=== PATIENT | female | born 1990 | race Caucasian/White ===

== ENCOUNTER 2025-01-11 21:44 | Emergency (ER) | payer BC, SELFPAY ==
--- OUTSIDE RECORDS SUMMARY | 2025-01-11 21:46 | XMS_ITS | Clinical Summary ---
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 1 Inhaler 2 08/23/2017 Active levocetirizine (XYZAL) 5 mg tab tablet 11/03/2018 Active melatonin 10 mg cap Take by mouth. 0 03/02/2019 Active drospirenone-ethi nyl estradioL (GIANCARLO) 3-0.02 mg tabletIndications :Menorrhagia with regular cycle Take 1 tablet by mouth once daily. 3 Package 3 05/04/2019 Active Active Problems Problem Noted Date Diagnosed Date Overweight(278.02) 09/22/2011 ENURESIS, NOCTURNAL Environmental allergies Resolved Problems Problem Noted Date Diagnosed Date Resolved Date Tobacco use disorder 05/19/2010 016 Immunizations Immunization Administration Dates Next Due DTP 09/23/1993, 0,04/30/1989,1988, 1988 Hepatitis B (Peds) 11/08/2000,01/22/2000, 000 Human Papilloma Virus Vaccine 11/22/2013, 011,10/18/2008 Influenza, IIV3 (Age >=3 years) 02/16/2007 MMR 09/23/1993,01/28/1990 Oral Polio Vaccine 09/23/1993,01/28/1990, 989,1988 Td (Age >=7 Years) 02/24/2019,11/07/1999 Tdap 10/18/2008 Family History Medical History Relation Name Comments Anesthesia Problem Maternal Grandmother H eart failure with syccinylcholine anesthesia Cancer-breast Mother Relation Name Status Comments Maternal Grandmother Mother Social History Tobacco Use Types Packs/Day Years Used Date Smoking Tobacco: Every Day Cigarettes Smokeless Tobacco: Never Tobacco Cessation:Ready to Q uit: No; Counseling Given: Yes Comments:Packet given 04/27/2016 Alcohol Use Standard Drinks/Week Comments Not Currently 0 (1 standard drink = 0.6 oz pur e alcohol) occasional Humiliation, Afraid, Rape, and Kick questionnair e Answer Date Recorded Fear of Current or Ex-Partner No Emotionally Abused No 02/24/2019 Physically Abused No 02/24/2019 Sexually Abused No 02/24/2019 PHQ-2 Answer Date Recorded PHQ-2 Score 2 02/24/2019 Comments No Sex and Gender Information Value Date Recorded Sex Assigned at Not on file Legal Sex Female 7:08 AM SENIOR DENTIST Gender Identity Not on file Sexual Orientation Not on file Occupation Industry Job Start Date Job End Date Not on file Not on file Not on file Not on file Obstetrics History Para Term AB IAB SAB Ectopic Multiple Livin g Live Births 0 0 0 0 0 0 0 0 0 0 Last Filed Vital Signs Vital Sign Reading Time Taken Comments Blood Pressure 127/88 03/02/2019 1:31 PM SENIOR DENTIST Pulse 80 03/02/2019 1:31 PM SENIOR DENTIST Temperature 36.6 C (97.8 F) 03/02/2019 1:31 PM SENIOR DENTIST Respiratory Rate 18 11/14/2014 2:34 PM CDT Oxygen Saturation 97% 03/02/2019 1:31 PM SENIOR DENTIST Inhaled Oxygen Concentration - - Weight 109.7 kg (241 lb 12.8 oz) 02/24/2019 1:00 PM SENIOR DENTIST Height 168 cm (5' 6.14) 02/24/2019 1:00 PM SENIOR DENTIST Body Mass Index 38.86 02/24/2019 1:00 PM SENIOR DENTIST Plan of Treatment Health Maintenance Due Date Last Done Comments Hepatitis C screening for age 18-79 2006 BMI (ht and wt on same day) for age 18+ 02/25/2020 02/24/2019, 08/23/2017, 04/27/2016, Additional history exists Depression screening for age 12+ 02/28/2020 02/27/2019, 02/24/2019, 08/23/2017, Additional history exists Pap test for age 21-65 02/24/2022 9, 11/22/2013, 05/19/2010 Influenza Vaccine (#1) 2024 02/16/2007 Tetanus booster 02/24/2029 02/24/2019, 08/2008, 11/07/1999 RSV vaccine for adults or (1 - 1-dose 75+ series) 05/22/2063 Hepatitis B series for 19+ Completed 11/08, 01/22/2000, 11/07/1999 HPV series for age 9-45 Completed 11/23/19 14, 05/19/2010, 10/18/2008 HIV for age 15-65 Completed 02/24/2019 Pneumococcal series for age 6-49 Aged Out No longer eligible based on patient's age to complete this topic Procedures Procedure Name Priority Date/Time Associated Diagnosis Comments ANTI HIV 1/2 Routine 02/24/2019 1:50 PM SENIOR DENTIST Screening examination for venereal disease LEAF TIER THIN PREP PAP SCREEN IMAGED Routine 02/24/2019 1:29 PM SENIOR DENTIST Screening for malignant neoplasm of cervix from Last 3 Months or Most Recently Relevant to Health Maintenance Results * ANTI HIV 1/2 (02/24/2019 1:50 PM SENIOR DENTIST) HIV-1/HIV-2 ANTIBODY Non-Reacti ve Non-Reacti ve 02/24/2019 8:11 PM SENIOR DENTIST [facility] Comment:HIV-1 p24 and HIV-1/ HIV-2 Ab not detected. Blood BLOOD SPECIMEN / Unknown Venipuncture / Unknown 02/24/2019 1:50 PM SENIOR DENTIST 02/24/2019 1:50 PM SENIOR DENTIST us Bridget Vega MD SEND OUTS Final Resul t [facility] [address] [place] [address], [place] * LEAF TIER THIN PREP PAP SCREEN IMAGED (02/24/2019 1:29 PM SENIOR DENTIST) Case Report Gynecologic Cytology Report Case: [id number] Authorizing Provider: Bridget Vega MD Collected: 02/24/2019 1329 Ordering Location: [facility] Received: 02/24/2019 1344 Clinic First Screen: Stacey Rose Specimen: LEAF TIER ThinPrep Vial Screening, Cervical 03/07/2019 1:34 PM SENIOR DENTIST [facility] Shook [facility] INTERPRETATION/ RESULT NEGATIVE FOR INTRAEPITHELIAL LESION OR MALIGNANCY (NIL) (none) 03/07/2019 1:34 PM SENIOR DENTIST [facility] at 1334 SENIOR DENTIST SPECIMEN ADEQUACY Satisfactory for evaluation Endocervical component present 03/07/2019 1:34 PM SENIOR DENTIST [facility] HPV REQUEST HPV if ASCUS 03/07/2019 1:34 PM SENIOR DENTIST [facility] Date of LMP 12/30/2018 03/07/2019 1:34 PM SENIOR DENTIST [facility] Last Pap Date 11/22/2013 03/07/2019 1:34 PM SENIOR DENTIST [facility] Last Pap Result NIL 9 1:34 PM SENIOR DENTIST [facility] Abnormal Pap or [place] Bx in last 5 years No 03/07/2019 1:34 PM SENIOR DENTIST [facility] Menstrual Status Irregular Periods 03/07/2019 1:34 PM SENIOR DENTIST [facility] Del[place] Bx Done Today No 03/07/2019 1:34 PM SENIOR DENTIST [facility] Additional Information None given 03/07/2019 1:34 PM SENIOR DENTIST [facility] Comment: Interpreted at [facility] [employer] [facility] - [address], [place] [address] Automated Review Successful 03/07/2019 1:34 PM SENIOR DENTIST [facility] Comment:Specimen processed s uccessfully by automated clerical transcriber device, ThinPrep Imaging System, [employer] Note The pap test is a screening technique, not a diagnostic procedure. It is used primarily to screen for squamous cancers and precursor lesions. Published studies have shown that it is subject to both false negative and false positive results. The pap test should not be used as the sole means to diagnose or exclude pre-malignant and malignant lesions. Cytology is screened and interpreted at [facility] [place] [facility] - [address], [place] [address] and [facility] - [address]; [place] [address] and [facility] - [address]; [place] [address] and [facility] [address]; [place] [address] 03/07/2019 1:34 PM SENIOR DENTIST [facility] Other (Cervical) Non-Blood / Unknown 02/24/2019 1:29 PM SENIOR DENTIST 02/24/2019 1:44 PM SENIOR DENTIST us Bridget Vega MD PATHOLOGY/CYTOLOGY Final Re sult [facility] 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 PCP - General 08/23/17
[2025-01-11 21:52] VITALS: BP 181/96; PULSE 40; RESP 18; TEMP 36.6; O2SAT 99; BMI 35.5
[2025-01-11 22:02] LABS: Appearance Urine Clear (Clear)
[2025-01-11 22:13] LABS: Lactate* 1.6 mmol/L (0.5-1.9)
--- NOTE | 2025-01-11 22:14 | ED_ITS ---
HPI - General Adult General Date Seen: 01/11/25 Chief complaint: Abdominal Pain Stated complaint: lower left abdominal pain Time Seen by Provider: 01/11/25 22:14 History of Present Illness HPI narrative: 34 yo F presenting to the ER today with left lower quadrant abdominal him in that started about 7:00 p.m. tonight. It has been sharp and continuous. She has been having normal bowel movements per day. She was not nauseous at home but did get nauseous and had a large volume nonbloody emesis discharge after arrival here to the ER. She does not think she is . Last period was 1 week ago. She is previously healthy. She does not currently have primary care. She has not recently sexually active. No vaginal discharge. No recent urinary trouble. No dysuria, urgency, frequency, hematuria. Bowel movements have been normal. No diarrhea. No fever. No nausea vomiting prior to arrival. No similar episodes of pain in the past. Related Data Home Medications ?Medication ?Instructions ?Recorded ?Confirmed No Known Home Medications 01/11/2512/15 Allergies Allergy/AdvReac Type Severity Reaction Status Date / Time succinylcholine AdvReac Verified 01/11/25 21:56 PFSH PFS Social History Smoking Status: Never smoker Do you use any of these nicotine containing products: None Non-prescribed substance use: denies use Exam Narrative: Exam Narrative: Constitutional: Appears well-developed and well-nourished. Alert. Conversant very uncomfortable. Polite. HENT: Head: Atraumatic. Nose: Nose normal. Mouth/Throat: Oral mucosa is clear and moist. no trismus. Pharynx normal. Tonsils symmetric. No tonsillar enlargement, erythema, or exudate. Eyes: Conjunctivae normal. EOM normal. Pupils equal, round, and reactive to light. No scleral icterus. Neck: Normal range of motion. Neck supple. No tracheal deviation present. Cardiovascular: Normal rate, regular rhythm. No gallop. No friction rub. No murmur heard. Symmetric radial artery pulses Pulmonary/Chest: Effort normal. No stridor. No respiratory distress. No wheezes. No rales. No rhonchi . No tenderness. Abdominal: Soft. Bowel sounds normal. No distension. Diffusely tender. Abdomen seems protuberant but difficult to determine if that is body habitus or due to tenderness. No CVA tenderness. No rebound. Positive guarding. Seems most tender in the left lower quadrant. Musculoskeletal: RUE: Normal range of motion. No tenderness. No deformity LUE: Normal range of motion. No tenderness. No deformity RLE: Normal range of motion. No edema. No tenderness. No deformity LLE: Normal range of motion. No edema. No tenderness. No deformity Neurological: Alert and oriented to person, place, and time. Normal strength. CN II-VII intact. No sensory deficit. GCS eye subscore is 4. GCS verbal subscore is 5. GCS motor subscore is 6. Normal coordination Skin: Skin is warm and dry. No rash noted. No pallor. Normal capillary refill. Psychiatric: Normal mood. Normal affect. Const: Vital Signs, click to edit/add: Vital Signs - 24 hr 01/11/25 21:52 01/11/25 22:26 01/11/25 22:30 Temperature 97.8 F Pulse Rate 41 L Pulse Rate [Pulse Oximeter] 40 L Respiratory Rate 18 14 Blood Pressure 169/84 H Blood Pressure [Ri ght Upper Arm] 181/96 H Pulse Oximetry 99 99 100 Oxygen Delivery Me thod Room Air 01/11/25 23:34 01/12/25 00:02 01/12/25 00:02 Temperature Pulse Rate 40 L 44 L 44 L Pulse Rate [Pulse Oximeter] Respiratory Rate 19 20 18 Blood Pressure 174/87 H 162/108 H 162/108 H Blood Pressure [Ri ght Upper Arm] Pulse Oximetry 99 98 98 Oxygen Delivery Me thod 01/12/25 00:02 01/12/25 01:00 01/12/25 01:00 Temperature Pulse Rate 44 L 43 L 43 L Pulse Rate [Pulse Oximeter] Respiratory Rate 19 19 18 Blood Pressure 162/108 H 177/101 H 177/101 H Blood Pressure [Ri ght Upper Arm] Pulse Oximetry 98 99 99 Oxygen Delivery Me thod 01/12/25 01:00 Temperature 97.1 F L Pulse Rate 43 L Pulse Rate [Pulse Oximeter] Respiratory Rate 18 Blood Pressure 177/101 H Blood Pressure [Ri ght Upper Arm] Pulse Oximetry 99 Oxygen Delivery Me thod Course Course ED Course: Recheck-pain improved after Dilaudid and Toradol but still uncomfortable. Going to CT. Reevaluation(s) Reevaluation #1: Recheck-I was reviewing her CT there is appear to be a large abdominal mass that is multiloculated and cystic. Unclear where it is coming from. Awaiting radiology read. Reevaluation #2: Recheck-upon obtaining radiology read concerning for left adnexal mass I put a consult out to our station supervisor, Dr. Genao. I reviewed the patient's presenting severe pain, large mass. We discussed this patient is presenting with severe pain and I would question-need to go to the OR tonight for explanation and to evaluate for torsion as well as for workup for the mass. Dr. Genao would recommend that we transfer the patient to a facility with Gyne Onc service is given the size of the mass and the potential for malignancy. She feels that the patient would not be a good surgical candidate to be managed here at [facility] because it would likely be a large open procedure and would be better done with frozen sections pathology which is not available here at [facility]. We do not have gynecologic oncology consulting . Will order pelvic ultrasound to check for flow. Dr. Genao also requests tumor markers, also ordered. Reevaluation #3: Recheck-discussed with patient and her father. They would agree with transfer to [place]. We made at phone call to the [facility]. They would not be able to paged this out directly to Gyne Onc because that service will not answer phone calls from outside hospitals. The [facility] will agree to consult with hospitalist. Hospitalist accepts , the hospitalist can consult gone on when the patient arrives. Discussed with hospitalist, Dr. Elizondo. He accepts. Recheck-I did get a verbal report from the technical testing engineer. She says she is not able to confirm blood flow in the left adnexa (but it is very difficult to vi sualize because of the size of the tumor around it). Therefore we are unable to confidently rule out torsion by ultrasound. I immediately placed a phone call back to [facility] to discuss the potential for torsion and to see if we could move up transfer. I was able to get a consult over the phone with Dr. Plascencia who is a general station supervisor. Dr. Plascencia expresses her surprise that are local station supervisor would recommend transfer for this patient with a large adnexal mass. She would advise that since the pain she had symptoms have now been going on for about 6 hours and given the size of the mass in left adnexa, even if there were an emergency surgery in the middle the night, likelihood of salvaging left ovary would be low. Because the likelihood of ovarian salvage would be low, Dr. Plascencia does not feel that there is a reason to transfer the patient emergently. She also advises the a line access center that when the patient arrives at [place] that the hospitalist should consult with the Gyne Onc Service, not with General gynecology. Vital Signs Vital signs: Initial Vital Signs Temperature 97.8 F 01/11/25 21:52 Temperature Source Temporal Artery Scan 01/11/25 21:52 Pulse Rate 40 L 01/11/25 21:52 Respiratory Rate 18 01/11/25 21:52 Blood Pressure 181/96 H 01/11/25 21:52 Blood Pressure Mean 124 H 01/11/25 21:52 Blood Pressure Position Sitting 01/11/25 21:52 Pulse Oximetry 99 01/11/25 21:52 Oxygen Delivery Method Room Air 01/11/25 21:52 Vital Signs Temperature 97.8 F 01/11/25 21:52 Pulse Rate 40 L 01/11/25 21:52 Respiratory Rate 18 01/11/25 21:52 Blood Pressure 181/96 H 01/11/25 21:52 Pulse Oximetry 99 01/11/25 21:52 Oxygen Delivery Method Room Air 01/11/25 21:52 Temperature 97.1 F L 01/12/25 01:00 Pulse Rate 43 L 01/12/25 01:00 Respiratory Rate 18 01/12/25 01:00 Blood Pressure 177/101 H 01/12/25 01:00 Pulse Oximetry 99 01/12/25 01:00 Oxygen Delivery Method Room Air 01/11/25 21:52 Medications Administered Medications: Generic Name Dose Route Start Last Admin Trade Name Freq PRN Reason Stop Dose Admin Hydromorphone HCl 0.5 mg 01/11/25 22:19 01/12/25 00:56 Hydromorphone 0.5 Mg/0.5 Ml Inj IVP 0.5 mg Q1H PRN Administration Pain Discontinued Medications Generic Name Dose Route Start Last Admin Trade Name Freq PRN Reason Stop Dose Admin Sodium Chloride 1,000 mls @ 1,000 mls/hr 01/11/25 22:30 01/12/25 00:00 0.9 % Sodium Chloride 1000 Ml IV 10/30/25 23:29 Infused .Q1H NANDINI Infusion Ketorolac Tromethamine 15 mg 01/11/25 22:19 01/11/25 22:26 Ketorolac 15 Mg/Ml Inj IVP 01/11/25 22:20 15 mg ONCE ONE Administration Ondansetron HCl 4 mg 01/11/25 22:19 01/11/25 22:25 Ondansetron 2 Mg/Ml Inj IVP 01/11/25 22:20 4 mg ONCE ONE Administration Medical Decision Making MDM Narrative Medical decision making narrative: Presented to the Emergency Department with abdominal pain that started in her left lower abdomen that is now more diffuse throughout her entire front abdomen. Pain began abruptly at about 7:00 p.m. tonight. The differential diagnosis of abdominal pain includes: Kidney stone, ovarian cyst or torsion, complication, Appendicitis, Bowel Obstruction, Ulcer, Ischemia, Cholecystitis, Diverticulitis, Pancreatitis, UTI, kidney stone, Enteritis/Colitis, amongst many other etiologies.Laboratory testing does not reveal a cause for the patient's pain. It does show a white count of 17. CT imaging shows a large cystic multiloculated mass that seems to be coming from the left ovary. Upon discovering the mass, consultation was made with our station supervisor, Dr. Genao. She reviewed the patient's present sting symptoms and recommends that we get a pelvic ultrasound to make sure there is in fact blood flow in the left ovary. She also request that we add on some tumor markers. These are ordered here in the ER. She recommends that if the patient is having lot of pain that she should be admitted for pain control but transfer to a hospital with Gyne Onc services for consultation and further evaluation. Pelvic ultrasound is obtained and is not able to demonstrate flow in the left ovary/adnexa. With her acute onset of severe pain tonight this is concerning for torsion. As above, consultations were made with gynecology here in [facility] as well as with Gynecology at [facility]. Plan is to transfer as soon as a bed is available [place]. Discussed with the patient, and her father at the bedside. They verbalized that we have discovered a mass but it is unclear if it is malignant or benign. She needs further workup. They consent and they would agree with plan for admission for pain control as well as Gynecology consultation. Incidentally she is found to be bradycardic with some marked sinus bradycardia heart rate of 40. She has sounds like she typically runs bradycardic with heart rate. She is not otherwise dizzy, lightheaded, presyncopal, or hypotensive from her bradycardia. Disc hurts to with my partner, Dr. Bergeron at 1:30 a.m.. He will keep the patient comfortable and tele bed can be arranged at [place]. Anticipating transfer pretty soon. Lab Data Labs: Lab Results 01/11/25 01/11/25 01/11/25 Range/Units 21:50 22:00 22:19 WBC 17.10 H (4.50-11.00) K/uL RBC 4.77 (4.00-5.20) m/uL Hgb 14.2 (12.0-16.0) gm/dL Hct 41.2 (33.0-51.0) % MCV 86 (80-100) fL MCH 30 (26-34) pg MCHC 35 (32-36) gm/dL RDW Coeff of Chet 12.4 (11.5-15.5) % Plt Count 300 (140-440) K/uL Neut % (Auto) 82.1 H (42.0-72.0) % Lymph % (Auto) 11.5 L (20-44) % [place] % (Auto) 5.0 (0.0-11.0) % Eos % (Auto) 1.0 (0.0-7.0) % Baso % (Auto) 0.1 (0.0-3.0) % Neut # (Auto) 14.00 H (1.7-7.0) K/uL Lymph # (Auto) 2.00 (0.90-2.90) K/uL Winona # (Auto) 0.90 (0.00-0.90) K/UL Eos # (Auto) 0.20 (0.00-0.50) K/uL Baso # (Auto) 0.00 (0.00-0.30) K/uL Abs Immat Gran (auto) 0.10 (0.00-0.30) K/uL Imm/Tot Granulo (auto) 0.3 % Sodium 137 (135-149) mmol/L Potassium 4.1 (3.6-5.1) mmol/L Chloride 106 (96-114) mmol/L Carbon Dioxide 23 (20-32) mmol/L Anion Gap 8 (7-15) mEq/L BUN 15 (5-24) mg/dL Creatinine 0.7 (0.5-1.5) mg/dL Estimated Creat Clear 104.01 Estimated GFR 115 ml/min Glucose 132 H (60-115) mg/dL Lactate 1.6 (0.5-1.9) mmol/L Calcium 9.4 (8.4-10.6) mg/dL Total Bilirubin 0.6 (0.1-1.5) mg/dL AST 30 (12-35) U/L ALT 15 (4-35) U/L Alkaline Phosphatase 67 (40-150) U/L Total Protein 7.9 (6.0-8.3) g/dL Albumin 4.5 (3.3-5.0) g/dL Lipase 82 (23-300) U/L Urine Color Yellow (Yellow) Urine Appearance Clear (Clear) Urine pH 6.5 (5.0-8.5) Ur Specific Inman >= 1.030 (1.000-1.030) Urine Protein Trace A (Negative) Urine Glucose (UA) Negative (Negative) Urine Ketones 1+ A (Negative) Urine Blood Negative (Negative) Urine Nitrite Negative (Negative) Urine Bilirubin Negative (Negative) Urine Urobilinogen 0.2 (0.2-1.0) Ur Leukocyte Esterase Negative (Negative) Urine RBC 0-2 (0-2) Urine WBC 0-2 (0-5) Ur Squamous Epith Cells Few (None-Few) Urine Bacteria None (None) Urine HCG, Qual Negative (Negative) Imaging Data US pelvic: Attestation: I have reviewed the pertinent imaging results. Radiologist's impression: IMPRESSION: 1. Large left ovarian multi-septated cystic mass, which essentially replaces the left ovary. No definite blood flow identified in the left ovary, however no normal ovarian parenchyma is identified. Left ovarian torsion cannot be exclude d. 2. Two right ovarian simple cyst. CT scan - abdomen: Attestation: I have reviewed the pertinent imaging results. Radiologist's impression: IMPRESSION: 1. Left adnexal large heterogeneous multi septated mass measuring up to 25 cm. Recommend gynecology consultation. 2. No other acute abdominal or pelvic abnormality. ECG Data Attestation: I personally reviewed and interpreted this ECG as follows: Interpretation: Marked sinus bradycardia Rate 41 beats per minute NM interval 156 Normal QRS axis no pathologic Q-waves. T-wave inversion in V1 and V2 with nonspecific. No ST segment elevation or depression. QTC 498, QTC 410 Discharge Plan Discharge Clinical Impression: Mass of left ovary, Bradycardia, Leukocytosis Patient Disposition: Margie Collazo Prescriptions: No Action No Known Home Medications Stand Alone Forms: Ad Infuse Info Instructions
[2025-01-11 22:15] LABS: Hematocrit* 41.2 % (33.0-51.0); Hemoglobin* 14.2 gm/dL (12.0-16.0); Immature Granulocytes Pct Auto 0.3 %; Mean Corpuscular HGB Conc 35 gm/dL (32-36); Mean Corpuscular Hemoglobin 30 pg (26-34); Mean Corpuscular Volume 86 fL (80-100); RDW Coefficient of Variation % 12.4 % (11.5-15.5); Red Blood Count* 4.77 m/uL (4.00-5.20); White Blood Count* 17.10 K/uL (4.50-11.00)
[2025-01-11] MEDS: ONDANSETRON 2 MG/ML inj 4 MG IVP (22:25)
[2025-01-11 22:26] VITALS: O2SAT 99
[2025-01-11 22:30] VITALS: BP 169/84; PULSE 41; RESP 14; O2SAT 100
[2025-01-11 22:35] LABS: Immature Granulocytes Abs Auto 0.10 K/uL (0.00-0.30); Lymphocytes Absolute Auto 2.00 K/uL (0.90-2.90); Slide Review Reflex No
--- NOTE | 2025-01-11 22:43 | CRLHL7_ITS ---
For Patients: As a result of the Century Cures Act, medical imaging exams and procedure reports are released immediately into your electronic medical record. You may view this report before your referring provider. If you have questions, please contact your health care provider. INDICATION: Left lower quadrant abdominal pain. TECHNIQUE: CT abdomen and pelvis acquired with 100 cc Isovue 370 IV contrast. COMPARISON: None. FINDINGS: Lower chest: Unremarkable. Liver: Unremarkable. Normal in size and attenuation. No suspicious masses. Gallbladder and bile ducts: Unremarkable. No stones or inflammation. No biliary ductal dilatation. Spleen: Unremarkable. Normal in size. No masses. Adrenal glands: Unremarkable. No nodules. Pancreas: Unremarkable. No mass or inflammation. Kidneys: Unremarkable. No suspicious masses, stones, or hydronephrosis. GI tract: Unremarkable. Normal in caliber. No evidence of obstruction. Normal appendix. Lymph nodes: No lymphadenopathy. Vasculature: Unremarkable. Omentum/Peritoneum/Abdominal Wall: Trace fluid in the pelvis, likely physiologic. No free air. Pelvis: Large heterogeneous multi-septated mass arising from left adnexa measuring approximately 22.5 x 14.5 x 24.7 cm (TR x AP x CC). Bones: Unremarkable for age. IMPRESSION: 1. Left adnexal large heterogeneous multi septated mass measuring up to 25 cm. Recommend gynecology consultation. 2. No other acute abdominal or pelvic abnormality. Please note that all CT scans at this facility use dose modulation, iterative reconstruction, and/or weight-based dosing when appropriate to reduce radiation dose to as low as reasonably achievable. Dictated by Fernando Humphrey MD @ 01/11/2025 11:45:38 PM (Electronically Signed)
[2025-01-11 22:51] LABS: Ur HCG Qualitative* Negative (Negative)
[2025-01-11 23:31] LABS: Albumin* 4.5 g/dL (3.3-5.0); Chloride* 106 mmol/L (96-114); Sodium* 137 mmol/L (135-149)
[2025-01-11 23:32] LABS: Potassium* 4.1 mmol/L (3.6-5.1)
[2025-01-11 23:34] VITALS: BP 174/87; PULSE 40; RESP 19; O2SAT 99
[2025-01-11 23:34] LABS: Alanine Aminotransferase* 15 U/L (4-35); Alkaline Phosphatase* 67 U/L (40-150); Anion Gap 8 mEq/L (7-15); Aspartate Amino Transferase* 30 U/L (12-35); Bilirubin Total* 0.6 mg/dL (0.1-1.5); Blood Urea Nitrogen* 15 mg/dL (5-24); Calcium* 9.4 mg/dL (8.4-10.6); Carbon Dioxide* 23 mmol/L (20-32); Creatinine* 0.7 mg/dL (0.5-1.5); Est. Creatinine Clearance* 104.01; Estimated Glomerular Filt Rate 115 ml/min; Glucose* 132 mg/dL (60-115); Total Protein* 7.9 g/dL (6.0-8.3)
[2025-01-12 00:02] VITALS: BP 162/108; PULSE 44; RESP 18; RESP 19; RESP 20; O2SAT 98
--- NOTE | 2025-01-12 00:19 | CRLHL7_ITS ---
For Patients: As a result of the Century Cures Act, medical imaging exams and procedure reports are released immediately into your electronic medical record. You may view this report before your referring provider. If you have questions, please contact your health care provider. INDICATION: Abdominal pain, left adnexal mass. TECHNIQUE: Ultrasound pelvis transabdominal and transvaginal for better assessment or to better visualize the endometrium. Real-time sonographic images with spectral and color Doppler imaging of the ovaries were obtained. COMPARISON: CT abdomen and pelvis 01/11/2025. FINDINGS: Uterus: 7.6 x 4.1 x 5.8 cm. Normal echotexture of the myometrium. No suspicious masses. Nabothian cysts. Endometrium: Endometrial thickness measures 11 mm. No sign of endometrial mass or fluid. Ovaries: Right ovary measures 5.2 x 2.7 x 3.4 cm and left ovary measures 23.4 x 15.1 x 20.5 cm. Two right ovarian simple cysts. Large multi-septated cystic mass essentially replaces the left ovary, with no definite normal ovarian parenchyma identified. There is internal echogenicity within several of the cystic compartments. Normal arterial and venous blood flow is demonstrated in the right ovary. No definite blood flow identified in the left ovary. Cul-de-sac: Small amount of free fluid. IMPRESSION: 1. Large left ovarian multi-septated cystic mass, which essentially replaces the left ovary. No definite blood flow identified in the left ovary, however no normal ovarian parenchyma is identified. Left ovarian torsion cannot be excluded. 2. Two right ovarian simple cyst. Dictated by Fernando Humphrey MD @ 01/12/2025 1:15:28 AM (Electronically Signed)
[2025-01-12 01:00] VITALS: BP 177/101; PULSE 43; RESP 18; RESP 19; TEMP 36.2; O2SAT 99
[2025-01-12 01:05] VITALS: BP 186/118; PULSE 40; RESP 18; O2SAT 96
[2025-01-12 01:49] VITALS: BP 195/136; PULSE 61; RESP 13; O2SAT 96
[2025-01-12 02:02] VITALS: BP 171/93; PULSE 42; RESP 17; O2SAT 95
[2025-01-12] MEDS: LACTATED RINGERS 1000 ML 1,000 ML 125 ML IV (02:16)
[2025-01-12 02:32] VITALS: BP 158/96; PULSE 46; RESP 16; TEMP 36.1; O2SAT 94
[2025-01-14 05:30] LABS: Cancer Antigen-GI (CA 19-9) 4 U/mL (<=35); Carcinoembryonic Antigen 1.7 ng/mL (<=3.8)
== END 2025-01-12 03:20 | disposition short-term general hospital (02) ==
PROVIDERS: Emergency Provider Emergency Medicine
DX: N83.9 Noninflammatory disorder of ovary, fallopian tube and broad ligament, unspecified (principal); R00.1 Bradycardia, unspecified; D72.829 Elevated white blood cell count, unspecified; R10.32 Left lower quadrant pain
CPT/HCPCS: 36415; 74177; 76830; 76856; 80053; 81001; 81025; 82378; 83605; 83690; 85025; 86301; 86304; 93005; 93976; 94761; 96361; 96374; 96375; 99284; 99285; J1171; J1885; J2060; J2405; J7030; J7120; Q9967

== ENCOUNTER 2025-01-12 02:55 | Outpatient (CLI) | payer BC, SELFPAY | END 2025-01-12 02:56 | disposition home or self-care (01) | LOC: AMB 01-14 18:57 | PROVIDERS: Visit Provider Family Medicine | DX: N83.8 Other noninflammatory disorders of ovary, fallopian tube and broad ligament (principal) | CPT/HCPCS: A0425; A0434 ==